=== PATIENT | female | born 1935 | race Caucasian/White ===

== ENCOUNTER 2017-05-04 11:59 | Inpatient (IN) ==
[2017-05-04] MEDS ORDERED: SALINE FLUSH 10ml SYRINGE IVF PRN (12:13)
--- NOTE | 2017-05-04 12:18 | Emergency Department Report ---
Syncope HPI - General Chief Complaint: Upper Respiratory Infection <Reny Gaytan - 05/08/17 21:18> Stated Complaint: pneumonia <Reny Gaytan - 05/08/17 21:18> Time Seen by Provider: 05/04/17 12:04 <Reny Gaytan - 05/08/17 21:18> Source: patient <Nesha Betancur - 05/04/17 12:18> Mode of arrival: EMS <Nesha Betancur 05/04/17 12:18> Limitations: no limitations <Nesha Betancur 05/04/17 12:18> - History of Present Illness HPI narrative: She is brought in today by EMS. Her daughter is the historian. They were at home today and she was with patient in the room. She had sat up on the bed and went stiff as a board. She fell back onto the bed. Her daughter checked her and she did not feel that she was breathing. Did not check a pulse. She was not responsive at all. She lifted her up and she was stiff. Then she took a big deep breath and started breathing again. She called for EMS after this. She was evaluated in ER yesterday. Was diagnosed with pneumonia and sent home with Rx for Levaquin 750mg and Zithromax 500mg x 10 days. She did take both this morning around 0930 and felt nauseated after that but did not vomit. She was having some chest pain earlier today be denies any at this time. <LauraphilippeNesha 05/04/17 12:18> MD complaint: loss of consciousness <Nesha Betancur 05/04/17 12:18> Onset (ago): hour(s) <Nesha Betancur 05/04/17 12:18> Description of event: other (Was stiff as a board per her daughter) <Nesha Betancur 05/04/17 12:18> Prodromal symptoms: none <Nesha Betancur 05/04/17 12:18> Witnessed: yes - by bystander (by her daughter) <Nesha Betancur 05/04/17 12: 18> Context: getting out of bed <Nesha Betancur 05/04/17 12:18> Injuries sustained associated with event: none <Nesha Betancur N - 05/04/17 12:18 > Current symptoms: weakness <LauraphilippeNesha 05/04/17 12:18> Treatments prior to arrival: none <Nesha Betancur 05/04/17 12:18> - Related Data Home Medications Medication Instructions Recorded Confirmed Albuterol Neb (0.083%) [Proventil 2.5 mg AEROSOL Q4H PRN 03/28/17 05/04/17 Neb (0.083%)] Buspirone [Buspar] 5 mg PO BID 03/28/17 05/04/17 Carvedilol 6.25 mg PO BID 03/28/17 05/04/17 Levothyroxine Sodium 50 mcg PO ACB 03/28/17 05/04/17 Omeprazole [Prilosec] 20 mg PO HS 03/28/17 05/04/17 Pravastatin Sodium [Pravachol] 40 mg PO HS 03/28/17 05/04/17 Tiotropium Handihaler [Spiriva] 1 cap INH DAILY 03/28/17 05/04/17 Rivaroxaban [Xarelto] 20 mg PO DAILY 05/03/17 05/04/17 Previous Rx's Medication Instructions Recorded DiltiaZEM CD [Cardizem Cd] 120 mg PO DAILY #30 cap 03/28/17 Guaifenesin LA [Mucinex LA] 600 mg PO BID #30 tab 05/06/17 Levofloxacin [Levaquin] 750 mg PO Q48H #10 tab 05/06/17 Valsartan [Diovan] 320 mg PO DAILY #30 tab 05/06/17 <Reny Gaytan - 05/08/17 21:18> Allergies Allergy/AdvReac Type Severity Reaction Status Date / Time No Known Allergies Allergy Verified 05/04/17 12:07 <Reny Gaytan - 05/08/17 21:18> Review of Systems Constitutional: Reports: weakness. Denies: fever, chills <LauraphilippeAnigladys Etienne - 10/19 12:18> ENT: Denies: ear pain, throat pain, congestion <LauraphilippeNesha N 05/04/17 12:18 > Cardiovascular: Reports: chest pain. Denies: palpitations, dyspnea on exertion , edema <LauraNesha 05/04/17 12:18> Respiratory: Denies: cough, dyspnea, wheezes [facility] 12:18> Gastrointestinal: Reports: nausea. Denies: abdominal pain, vomiting, diarrhea <[facility] 05/04/17 12:18> Integumentary: Denies: rash <[facility] 05/04/17 12:18> Neurological: Reports: weakness. Denies: headache, numbness, paresthesias < [facility] 05/04/17 12:18> [facility] Patient Stated Medical History Cataracts Yes Dysphagia Yes Angina Yes Cardiac Arrhythmia Yes: afib Hypertension Yes Myocardial Infarction No Other Cardiology Yes: mitral valve prolapse Pneumonia Yes Tuberculosis Yes Gastroesophageal Reflux Yes Disease Shingles Yes: back Post Menopausal Yes <Reny Gaytan 05/08/17 21:18> - Social History Smoking status: Former smoker <[facility] 12[facility]18> Physical Exam - Limitations Limitations: no limitations <[facility]/04[facility] 12:18> - General General appearance: alert, in no apparent distress <LauraNesha 05/04/17 12:18> - Normal Exams: Eyes:: Pupils are PERRLA w/ EOMI, No scleral icterus, irritation, or foreign bodies noted <[facility]/04[facility] 12:18> ENMT:: No facial trauma, nasal exudates, pharyngeal erythema, or exudates are noted <[facility] 05/04/17 12:18> Neck:: Full range of motion, without adenopathy, JVD, bruits or thyromegaly < [facility] 05/04/17 12:18> Cardiovascular:: Regular rate and rhythm, without murmur or gallop, Pulses 2+ all extremities, capillary refill, <2 seconds all extremities <LauraNesha 05/04/17 12:18> Abdomen:: Bowel sounds positive, soft, non-tender, non-distended, no hepatosplenomegaly, masses or bruits noted <Nesha Betancur Low[place] - 05/04/17 12:18> Lymphatic:: No lymphadenopathy, or lymphedema noted <Nesha Betancur 05/04/17 12:18> Integumentary:: No rashes, hives, or bruising noted <Nesha Betancur - 05/04/17 12:18> Neurological:: Patient is alert, and oriented <Nesha Betancur [place] 05/04/17 12:18> Psychiatric:: Patient exhibits, appropriate attention, emotion and affect < Nesha Betancur - 05/04/17 12:18> - Respiratory Respiratory exam: Present: crackles (in right lower lobe) <Nesha Betancur 10/19 12:18> Course Course Narrative: Patient's history and exam reviewed along with labs and CXR. Agree with care given. <LukasReny M - 05/08/17 21:18> Vital Signs Temperature 37.1 C 05/04/17 12:05 Pulse Rate 89 05/04/17 12:05 Respiratory Rate 16 05/04/17 12:05 Blood Pressure 132/93 H 05/04/17 12:05 Pulse Oximetry 96 05/04/17 12:05 Temperature 36.3 C 05/06/17 08:00 Pulse Rate 86 05/06/17 08:00 Respiratory Rate 18 05/06/17 09:57 Blood Pressure 161/83 H 05/06/17 08:00 Pulse Oximetry 96 05/06/17 08:00 <LukasReny M - 05/08/17 21:18> Vital Signs Temperature 37.1 C 05/04/17 12:05 Pulse Rate 89 05/04/17 12:05 Respiratory Rate 16 05/04/17 12:05 Blood Pressure 132/93 H 05/04/17 12:05 Pulse Oximetry 96 05/04/17 12:05 Temperature 36.3 C 05/06/17 08:00 Pulse Rate 86 05/06/17 08:00 Respiratory Rate 18 05/06/17 09:57 Blood Pressure 161/83 H 05/06/17 08:00 Pulse Oximetry 96 05/06/17 08:00 <LauraphilippeNesha N - 05/04/17 14:03> Syncope - MDM Narrative Medical decision making narrative: K+-3.0 and Na-129. No other abnormalities noted on labs. Ct of head is negative. Did talk with Dr Henry. Given her period of unresponsiveness today without known reason will admit her OBS with tele at this time. <Nesha Betancur - 05/04/17 14:15> - Differential Diagnosis Likely: vasovagal syncope, subarachnoid hemorrhage, dehydration <Nesha Betancur - 05/04/17 12:18> - Lab Data Attestation: I reviewed the patient's lab results. <Nesha Betancur - 05/04/17 14:03> Result diagrams: 05/06/17 05:16 05/06/17 05:16 <LukasReny M - 05/08/17 21:18> Lab Results 05/04/17 05/04/17 05/04/17 Range/Units 12:34 12:34 12:34 WBC 7.7 (4.5-11.0) T/MM3 RBC 4.10 (4.00-5.20) M/MM3 Hgb 12.8 (12-16) GM/DL Hct 36.5 (36-46) % MCV 89.0 (80-100) UM3 MCH 31.2 (26-34) UUG MCHC 35.1 (31-37) GM/DL RDW Std Deviation 42.0 (36.9-50.2) FL Plt Count 308 (130-400) T/MM3 MPV 8.8 L (9.4-12.4) UM3 Immature Gran % (Auto) 0.1 (0.0-0.5) % Neut % (Auto) 79.4 H (33-66) % Lymph % (Auto) 9.8 L (23-45) % [place] % (Auto) 10.4 H (0-9.0) % Eos % (Auto) 0.0 (0-4) % Baso % (Auto) 0.3 (0-2) % Neut # 6.1 (1.8-7.7) T/MM3 Lymph # 0.8 L (1-4.8) T/MM3 [place] # 0.8 (0-0.8) T/MM3 Eos # 0.0 (0-0.5) T/MM3 Baso # 0.0 (0-0.2) T/MM3 Abs Immat Gran (auto) 0.01 (0.00-0.03) T/MM3 Turbidity < 20 (0-20) Sodium 129 L (134-144) MEQ/L Potassium 3.0 L (3.6-5) MEQ/L Chloride 88 L (98-107) MEQ/L Carbon Dioxide 30 (22-30) MEQ/L Anion Gap 11 (5-15) MEQ/L BUN 16.0 (7-17) MG/DL Creatinine 1.0 (0.7-1.2) MG/DL GFR Calculation 53 BUN/Creatinine Ratio 16 (6-26) RATIO Glucose 121 H (65-110) MG/DL Calculated Osmolality 251 L (261-280) MOSM/KG Calcium 9.4 (8.4-10.2) MG/DL Magnesium 1.4 L (1.6-2.3) MG/DL Total Bilirubin 0.70 (0.20-1.30) MG/DL Icterus Index < 2 (0-7) AST 41 H (14-36) U/L ALT 41 (9-52) U/L Alkaline Phosphatase 88 D (38-126) U/L Troponin I 0.016 (0-0.12) ng/ml Total Protein 6.9 (6.3-8.2) G/DL Albumin 3.8 (3.5-5.0) G/DL Globulin 3.1 (2.4-3.6) G/DL Albumin/Globulin Ratio 1.2 (1.1-2.2) RATIO Specimen Hemolysis < 15 (0-25) Ur Collection Type Urine Color (YELLOW) Urine Clarity Urine pH (5.0-8.0) Ur Specific [place] (1.015-1.025) Urine Protein (NEGATIVE) Urine Glucose (UA) (NEGATIVE) Urine Ketones (NEGATIVE) Urine Occult Blood (NEGATIVE) Urine Nitrate (NEGATIVE) Urine Bilirubin (NEGATIVE) Urine Urobilinogen (NORMAL) EU/DL Ur Leukocyte Esterase (NEGATIVE) Urine RBC (0-3) /HPF Urine WBC (0-5) /HPF Ur Squamous Epith Cells Urine Bacteria (NEGATIVE) Ur Culture Indicated? 05/04/17 Range/Units 13:53 WBC (4.5-11.0) T/MM3 RBC (4.00-5.20) M/MM3 Hgb (12-16) GM/DL Hct (36-46) % MCV (80-100) UM3 MCH (26-34) UUG MCHC (31-37) GM/DL RDW Std Deviation (36.9-50.2) FL Plt Count (130-400) T/MM3 MPV (9.4-12.4) UM3 Immature Gran % (Auto) (0.0-0.5) % Neut % (Auto) (33-66) % Lymph % (Auto) (23-45) % [place] % (Auto) (0-9.0) % Eos % (Auto) (0-4) % Baso % (Auto) (0-2) % Neut # (1.8-7.7) T/MM3 Lymph # (1-4.8) T/MM3 [place] # (0-0.8) T/MM3 Eos # (0-0.5) T/MM3 Baso # (0-0.2) T/MM3 Abs Immat Gran (auto) (0.00-0.03) T/MM3 Turbidity (0-20) Sodium (134-144) MEQ/L Potassium (3.6-5) MEQ/L Chloride (98-107) MEQ/L Carbon Dioxide (22-30) MEQ/L Anion Gap (5-15) MEQ/L BUN (7-17) MG/DL Creatinine (0.7-1.2) MG/DL GFR Calculation BUN/Creatinine Ratio (6-26) RATIO Glucose (65-110) MG/DL Calculated Osmolality (261-280) MOSM/KG Calcium (8.4-10.2) MG/DL Magnesium (1.6-2.3) MG/DL Total Bilirubin (0.20-1.30) MG/DL Icterus Index (0-7) AST (14-36) U/L ALT (9-52) U/L Alkaline Phosphatase (38-126) U/L Troponin I (0-0.12) ng/ml Total Protein (6.3-8.2) G/DL Albumin (3.5-5.0) G/DL Globulin (2.4-3.6) G/DL Albumin/Globulin Ratio (1.1-2.2) RATIO Specimen Hemolysis (0-25) Ur Collection Type Urine, clean catch Urine Color Yellow (YELLOW) Urine Clarity Clear Urine pH 6.0 (5.0-8.0) Ur Specific [place] 1.020 (1.015-1.025) Urine Protein Negative (NEGATIVE) Urine Glucose (UA) Negative (NEGATIVE) Urine Ketones Negative (NEGATIVE) Urine Occult Blood 2+ A (NEGATIVE) Urine Nitrate Negative (NEGATIVE) Urine Bilirubin Negative (NEGATIVE) Urine Urobilinogen 0.2 (NORMAL) EU/DL Ur Leukocyte Esterase Negative (NEGATIVE) Urine RBC 5-10 H (0-3) /HPF Urine WBC 0-1 (0-5) /HPF Ur Squamous Epith Cells 0-5 Urine Bacteria None seen (NEGATIVE) Ur Culture Indicated? Cult not indicated <LukasReny M - 05/08/17 21:18> Lab Results 05/04/17 05/04/17 05/04/17 Range/Units 12:34 12:34 12:34 WBC 7.7 (4.5-11.0) T/MM3 RBC 4.10 (4.00-5.20) M/MM3 Hgb 12.8 (12-16) GM/DL Hct 36.5 (36-46) % MCV 89.0 (80-100) UM3 MCH 31.2 (26-34) UUG MCHC 35.1 (31-37) GM/DL RDW Std Deviation 42.0 (36.9-50.2) FL Plt Count 308 (130-400) T/MM3 MPV 8.8 L (9.4-12.4) UM3 Immature Gran % (Auto) 0.1 (0.0-0.5) % Neut % (Auto) 79.4 H (33-66) % Lymph % (Auto) 9.8 L (23-45) % [place] % (Auto) 10.4 H (0-9.0) % Eos % (Auto) 0.0 (0-4) % Baso % (Auto) 0.3 (0-2) % Neut # 6.1 (1.8-7.7) T/MM3 Lymph # 0.8 L (1-4.8) T/MM3 [place] # 0.8 (0-0.8) T/MM3 Eos # 0.0 (0-0.5) T/MM3 Baso # 0.0 (0-0.2) T/MM3 Abs Immat Gran (auto) 0.01 (0.00-0.03) T/MM3 Turbidity < 20 (0-20) Sodium 129 L (134-144) MEQ/L Potassium 3.0 L (3.6-5) MEQ/L Chloride 88 L (98-107) MEQ/L Carbon Dioxide 30 (22-30) MEQ/L Anion Gap 11 (5-15) MEQ/L BUN 16.0 (7-17) MG/DL Creatinine 1.0 (0.7-1.2) MG/DL GFR Calculation 53 BUN/Creatinine Ratio 16 (6-26) RATIO Glucose 121 H (65-110) MG/DL Calculated Osmolality 251 L (261-280) MOSM/KG Calcium 9.4 (8.4-10.2) MG/DL Magnesium 1.4 L (1.6-2.3) MG/DL Total Bilirubin 0.70 (0.20-1.30) MG/DL Icterus Index < 2 (0-7) AST 41 H (14-36) U/L ALT 41 (9-52) U/L Alkaline Phosphatase 88 D (38-126) U/L Troponin I 0.016 (0-0.12) ng/ml Total Protein 6.9 (6.3-8.2) G/DL Albumin 3.8 (3.5-5.0) G/DL Globulin 3.1 (2.4-3.6) G/DL Albumin/Globulin Ratio 1.2 (1.1-2.2) RATIO Specimen Hemolysis < 15 (0-25) Ur Collection Type Urine Color (YELLOW) Urine Clarity Urine pH (5.0-8.0) Ur Specific [place] (1.015-1.025) Urine Protein (NEGATIVE) Urine Glucose (UA) (NEGATIVE) Urine Ketones (NEGATIVE) Urine Occult Blood (NEGATIVE) Urine Nitrate (NEGATIVE) Urine Bilirubin (NEGATIVE) Urine Urobilinogen (NORMAL) EU/DL Ur Leukocyte Esterase (NEGATIVE) Urine RBC (0-3) /HPF Urine WBC (0-5) /HPF Ur Squamous Epith Cells Urine Bacteria (NEGATIVE) Ur Culture Indicated? 05/04/17 Range/Units 13:53 WBC (4.5-11.0) T/MM3 RBC (4.00-5.20) M/MM3 Hgb (12-16) GM/DL Hct (36-46) % MCV (80-100) UM3 MCH (26-34) UUG MCHC (31-37) GM/DL RDW Std Deviation (36.9-50.2) FL Plt Count (130-400) T/MM3 MPV (9.4-12.4) UM3 Immature Gran % (Auto) (0.0-0.5) % Neut % (Auto) (33-66) % Lymph % (Auto) (23-45) % [place] % (Auto) (0-9.0) % Eos % (Auto) (0-4) % Baso % (Auto) (0-2) % Neut # (1.8-7.7) T/MM3 Lymph # (1-4.8) T/MM3 [place] # (0-0.8) T/MM3 Eos # (0-0.5) T/MM3 Baso # (0-0.2) T/MM3 Abs Immat Gran (auto) (0.00-0.03) T/MM3 Turbidity (0-20) Sodium (134-144) MEQ/L Potassium (3.6-5) MEQ/L Chloride (98-107) MEQ/L Carbon Dioxide (22-30) MEQ/L Anion Gap (5-15) MEQ/L BUN (7-17) MG/DL Creatinine (0.7-1.2) MG/DL GFR Calculation BUN/Creatinine Ratio (6-26) RATIO Glucose (65-110) MG/DL Calculated Osmolality (261-280) MOSM/KG Calcium (8.4-10.2) MG/DL Magnesium (1.6-2.3) MG/DL Total Bilirubin (0.20-1.30) MG/DL Icterus Index (0-7) AST (14-36) U/L ALT (9-52) U/L Alkaline Phosphatase (38-126) U/L Troponin I (0-0.12) ng/ml Total Protein (6.3-8.2) G/DL Albumin (3.5-5.0) G/DL Globulin (2.4-3.6) G/DL Albumin/Globulin Ratio (1.1-2.2) RATIO Specimen Hemolysis (0-25) Ur Collection Type Urine, clean catch Urine Color Yellow (YELLOW) Urine Clarity Clear Urine pH 6.0 (5.0-8.0) Ur Specific [place] 1.020 (1.015-1.025) Urine Protein Negative (NEGATIVE) Urine Glucose (UA) Negative (NEGATIVE) Urine Ketones Negative (NEGATIVE) Urine Occult Blood 2+ A (NEGATIVE) Urine Nitrate Negative (NEGATIVE) Urine Bilirubin Negative (NEGATIVE) Urine Urobilinogen 0.2 (NORMAL) EU/DL Ur Leukocyte Esterase Negative (NEGATIVE) Urine RBC 5-10 H (0-3) /HPF Urine WBC 0-1 (0-5) /HPF Ur Squamous Epith Cells 0-5 Urine Bacteria None seen (NEGATIVE) Ur Culture Indicated? Cult not indicated <Nesha Betancur 05/04/17 14:03> - Radiology Data Attestation: I reviewed the patient's radiology results. <Nesha Betancur 10/19 14:03> CT head: Negative for intracranial hemorrhage <Nesha Betancur 05/04/17 14:03> Disposition Clinical Impression: Pneumonia Qualifiers: Pneumonia type: due to unspecified organism Laterality: right Lung location: lower lobe of lung Qualified Code(s): J18.1 - Lobar pneumonia, unspecified organism Syncope Qualifiers: Syncope type: unspecified Qualified Code(s): R55 - Syncope and collapse <Reny Gaytan 05/08/17 21:18> Disposition: 02 To [facility] <Reny Gaytan 05/08/17 21:18> Condition: Stable <Reny Gaytan 05/08/17 21:18> Instructions: <Reny Gaytan [facility] 05/08/17 21:18> Prescriptions: New Guaifenesin LA [Mucinex LA] 600 mg PO BID #30 tab Valsartan [Diovan] 320 mg PO DAILY #30 tab Continue Carvedilol 6.25 mg PO BID Albuterol Neb (0.083%) [Proventil Neb (0.083%)] 2.5 mg AEROSOL Q4H PRN PRN Reason: Prn Orders Pravastatin Sodium [Pravachol] 40 mg PO HS Omeprazole [Prilosec] 20 mg PO HS Tiotropium Handihaler [Spiriva] 1 cap INH DAILY Buspirone [Buspar] 5 mg PO BID Rivaroxaban [Xarelto] 20 mg PO DAILY Levothyroxine Sodium 50 mcg PO ACB DiltiaZEM CD [Cardizem Cd] 120 mg PO DAILY #30 cap Changed Levofloxacin [Levaquin] 750 mg PO Q48H #10 tab Discontinued Valsartan/Hydrochlorothiazide [Valsartan-Hctz 320-25 mg Tab] 1 tab PO DAILY Guaifenesin [Mucinex] 200 mg PO BID PRN #30 tab PRN Reason: Cough Azithromycin [Zithromax] 500 mg PO DAILY #10 tab <Reny Gaytan - 21:18> Referrals: Dar Cobb II, MD [Primary Care Provider] - <Reny Gaytan - 05/08/17 21:18> Forms: <Reny Gaytan - 05/08/17 21:18> Time of Disposition: 14:01 <Nesha Betancur - 05/04/17 14:03> - Seen By: midlevel <Nesha Betancur - 05/04/17 14:03>
[2017-05-04] MEDS: NS 1,000 ML IV SCH ×2 (13:24→20:00)
[2017-05-04 14:30] VITALS: BMI 18.4
[2017-05-04] MEDS ORDERED: METOCLOPRAMIDE 10mg/2ml INJECTION IVP PRN (15:41)
[2017-05-04] MEDS ORDERED: CALCIUM CARBONATE Chewable 500mg TABLET PO PRN (15:41)
[2017-05-04] MEDS ORDERED: SENNOSIDES 8.6 MG TABLET PO PRN (15:41)
[2017-05-04] MEDS ORDERED: ACETAMINOPHEN 325 MG TABLET PO PRN (15:41)
[2017-05-04] MEDS ORDERED: ALBUTEROL 2.5mg/3ml (0.083%) NEB AEROSOL PRN (15:54)
[2017-05-04] MEDS ORDERED: MENTHOL COUGH DROPS (RICOLA) MM PRN (16:08)
--- NOTE | 2017-05-04 16:18 | History & Physical Report ---
History of Present Illness Date: 05/04/17 Chief complaint: syncope HPI: Mrs. Delvalle is a 81-year-old female who returned from brief trip to [place] 2 days prior to admission. She's had a minor cough over the past week with increasing severity of cough and feeling as though there is sputum in the back of her throat which is thick and cannot be coughed up for several days. She describes the cough as "croupy" and without associated fever or chills. She's had some nausea. She was seen at [facility] yesterday for symptoms or she was noted to have a heart rate of 130 and subsequently referred to the emergency room. On reassessment the patient's heart rate was 112 and temperature 99.2. Blood pressure was elevated at 190/101. Chest x-ray was read as possible right lower lobe infiltrate and she was started on Levaquin and azithromycin for 10 days with initial doses given in the emergency room. Low- dose Mucinex was prescribed for secretions. EKG demonstrated atrial fibrillation with rate of 104. Patient subsequently returned home, slept well and ate a small breakfast this morning. Further after she developed nausea with dry heaves. She was able to take morning medications including both antibiotics prior to onset of GI symptoms. She describes having minor chest pain but no palpitations. Her daughter describes significant retching at which point the patient's eyes rolled back the patient became stiff and fell back in her bed and did not appear to breathe. Unclear how long this lasted but as the patient' s daughter was repositioning her patient took a large gasping breath and then started coming around over about a 5 minute time period. The patient was slightly confused when EMS arrived on the scene and initial blood pressure was 98/53. Multiple electrolyte abnormalities were identified in the emergency room , EKG again demonstrates atrial fibrillation with improvement in rate control. CT of the head was without acute pathology although extensive maxillary sinusitis and moderate ethmoid sinusitis was identified. Mrs. Delvalle reports that she has had discolored nasal secretions and has been blowing her nose significantly over the past week but is not aware of postnasal drainage. The patient describes generalized weakness and difficulty swallowing in addition to above. Patient is admitted for further assessment of syncope. Review of Systems Comprehensive ROS: completed and no additional positive findings except those as stated Review of systems: 35 pound weight loss in 2-3 years with associated reports that nothing tastes good and that she feels like food stick in the upper esophagus; chronic wiggly lines in her vision, cramps in her hands, major stress/anxiety-per daughter. Patient denies sinus headaches. Remainder of comprehensive ROS per history of present illness. [facility] Patient Stated Medical History Chronic atrial fibrillation-Dr. 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 Medications Home Medications Medication Instructions Recorded Confirmed Type Albuterol Neb (0.083%) [Proventil 2.5 mg AEROSOL Q4H PRN 03/28/17 05/04/17 History Neb (0.083%)] Buspirone [Buspar] 5 mg PO BID 03/28/17 05/04/17 History Carvedilol 6.25 mg PO BID 03/28/17 05/04/17 History Levothyroxine Sodium 50 mcg PO ACB 03/28/17 05/04/17 History Omeprazole [Prilosec] 20 mg PO HS 03/28/17 05/04/17 History Pravastatin Sodium [Pravachol] 40 mg PO HS 03/28/17 05/04/17 History Tiotropium Handihaler [Spiriva] 1 cap INH DAILY 03/28/17 05/04/17 History Valsartan/Hydrochlorothiazide 1 tab PO DAILY 03/28/17 05/04/17 History [Valsartan-Hctz 320-25 mg Tab] Rivaroxaban [Xarelto] 20 mg PO DAILY 05/03/17 05/04/17 History Allergies Allergy/AdvReac Type Severity Reaction Status Date / Time No Known Allergies Allergy Verified 05/04/17 12:07 Exam Vital Signs: Temperature 98.1 F 05/04/17 14:28 Pulse Rate 86 05/04/17 14:28 Respiratory Rate 16 05/04/17 14:28 Blood Pressure 160/80 H 05/04/17 14:28 Pulse Oximetry 96 05/04/17 14:28 EXAM: General-NAD, alert, patchy alopecia HEENT-PERRL, EOMI without nystagmus, conjugate gaze, conjunctiva clear, sclera anicteric facial structures symmetric, oropharynx clear, neck supple and without adenopathy Lungs-nonlabored, good airflow, breath sounds clear bilaterally Cardiac-irregularly irregular, S1-S2 Abd-soft, nontender, bowel sounds present Ext-without edema Skin-without rash or evidence of wounds Neuro-cranial nerves 3-12 intact, sensation intact to light touch 4 extremities , motor tone normal, mild generalized weakness Psych-anxious Height/Weight/BMI: Height 1.55 m Weight 44.3 kg Body Mass Index 18.4 Results - Labs CBC & Chem 7: 05/04/17 12:34 05/04/17 12:34 Labs: ER visit overnight: White count 10.1 with unremarkable differential, lactic acid 1.1, procalcitonin 0.08 Currently-liver enzymes unremarkable except AST is 41 Troponin 0.016 - ECG Data Tracing #1 I reviewed this ECG and interpreted as documented below: (A. fib, adequate rate control, no acute changes) - Imaging and Cardiology CT scan - head Status: image reviewed by me (Acute intracranial pathology, opacification of maxillary sinuses and minor ethmoid disease) Chest x-ray Status: image reviewed by me (chest x-ray obtained last night in the emergency room demonstrates COPD, nodule and scarring unchanged from film in early March; no clear infiltrate by my review.) Assessment and Plan (1) Syncope Current visit: Yes Status: Acute DVT Prophylaxis: SCD's, Xarelto Resuscitation Status: Full Code Assessment and Plan: Assessment: Syncope Atrial fibrillation Hyponatremia-POA Hypokalemia-POA Sinusitis, maxillary/ethmoid COPD Hypertension Weight loss Dysphasia Plan: Mrs. Delvalle was admitted with combination of syncope, generalized weakness in conjunction with hyponatremia and hypokalemia, and subacute weight loss. I am concerned that an arrhythmia preceded her syncopal event based on her daughter's description and reports that the patient was apneic and possibly pulseless for brief period of time. Combination of azithromycin and Levaquin are associated with QT prolongation and potential for arrhythmias. Azithromycin will be discontinued. Levaquin will be continued for sinusitis and sputum culture ordered. Respiratory viral panel will be obtained. Mucinex will be continued at 600 mg twice a day to help with cough control and cough drops added. Potassium is being replaced IV and orally, saline will be continued for hypokalemia; HCTZ is being discontinued due to electrolyte abnormalities and magnesium checked as patient has been hypomagnesemic in the past when evaluated in the emergency room. Swallow evaluation requested, may eventually require direct visualization of esophagus. Adequate rate control at present, but pressure elevated on arrival-continue to monitor. Following stabilization of present problems patient will return to the care of Dr. Cobb. Old records reviewed, daughter provide supplemental history; current/past chest x-ray and head CT in addition to EKG is reviewed by myself, laboratory data reviewed. Sepsis Assessment - Evaluation Sepsis screening result: No Definite Risk Hospital Course Summary Disclaimer: The visit summary below is not to be considered part of the above Progress Note. Hospital Course: 05/04/17 16:38 Mrs. Delvalle was admitted with combination of syncope, generalized weakness in conjunction with hyponatremia and hypokalemia, and subacute weight loss. I am concerned that an arrhythmia preceded her syncopal event based on her daughter's description and reports that the patient was apneic and possibly pulseless for brief period of time. Combination of azithromycin and Levaquin are associated with QT prolongation and potential for arrhythmias. Azithromycin will be discontinued. Levaquin will be continued for sinusitis and sputum culture ordered. Respiratory viral panel will be obtained. Mucinex will be continued at 600 mg twice a day to help with cough control and cough drops added. Potassium is being replaced IV and orally, saline will be continued for hypokalemia; HCTZ is being discontinued due to electrolyte abnormalities and magnesium checked as patient has been hypomagnesemic in the past when evaluated in the emergency room. Swallow evaluation requested, may eventually require direct visualization of esophagus. Adequate rate control at present, but pressure elevated on arrival-continue to monitor.
[2017-05-04] MEDS: NS with KCL 20 mEq 1,000 ML IV SCH (17:20)
[2017-05-04] MEDS: MAGNESIUM SULFATE 1gm PREMIX 1 GM/100 ML BAG IV SCH ×2 (17:27→19:51)
[2017-05-04] MEDS: GUAIFENESIN LA 600 MG TABLET PO SCH ×2 (17:27→22:30)
[2017-05-04] MEDS ORDERED: CARVEDILOL 6.25 MG TABLET PO SCH (21:00)
[2017-05-04] MEDS: PRAVASTATIN 40 MG TABLET PO SCH (22:28)
[2017-05-04] MEDS: BUSPIRONE 5 MG TABLET PO SCH (22:29)
[2017-05-04] MEDS: OMEPRAZOLE 20 MG CAPSULE PO SCH (22:31)
[2017-05-05] MEDS: LEVOTHYROXINE 50 MCG TABLET PO SCH (06:15)
[2017-05-05] MEDS ORDERED: LEVOFLOXACIN 750 MG TABLET PO SCH (07:30)
[2017-05-05] MEDS: NS with KCL 20 mEq 1,000 ML IV SCH ×3 (07:47→19:01)
[2017-05-05] MEDS: CARVEDILOL 6.25 MG TABLET PO SCH ×2 (07:48→17:52)
[2017-05-05 07:57] VITALS: RESP 18
[2017-05-05] MEDS: TIOTROPIUM 18mcg/cap HANDIHALER ORAL INH SCH (09:38)
--- NOTE | 2017-05-05 09:52 | CT Scan Report ---
Indication: unresponsive episode PROCEDURE: CT head/brain wo con: Encounter: Initial Comparison: None Technique: Axial CT images through the head were performed without contrast. Iterative Reconstruction dose reducing technique was utilized. FINDINGS: Mild atrophy. The ventricles are of normal size, shape, and contour for the patient's age. There are scattered areas of low attenuation in the white matter which most likely represent changes from chronic microvascular ischemia. The brainstem, cerebellum, and cerebral hemispheres otherwise have a normal morphology and CT attenuation. There is no evidence of midline displacement. No hemorrhage, signs of acute territorial stroke, mass effect, mass lesions, or edema is evident. The visualized portions of the skull base, midface, and calvarium demonstrate no abnormality. Opacification of the maxillary sinuses. IMPRESSION: No acute intracranial abnormality or hemorrhage. There is a preliminary report by [facility]. .
[2017-05-05] MEDS: Valsartan 160 MG TABLET PO SCH (10:09)
[2017-05-05] MEDS: BUSPIRONE 5 MG TABLET PO SCH (10:09)
[2017-05-05] MEDS: GUAIFENESIN LA 600 MG TABLET PO SCH ×2 (10:10→20:53)
--- NOTE | 2017-05-05 14:04 | Progress Note ---
<Giovana Chester - Last Filed: 05/05/17 14:01> Subjective: Shala is up in room- is very anxious. Is quite upset that her glasses are not very effective for her. States this is a chronic problem, and that she has needed to see her eye doctor for some time. She reports that she is breathing fairly well. Denies productive cough. No c/o pain. Chart is reviewed for collateral information. Objective Vital signs: Temperature 97.8 F 05/05/17 07:54 Pulse Rate 79 05/05/17 11:08 Respiratory Rate 18 05/05/17 07:54 Blood Pressure 159/80 H 05/05/17 09:18 Pulse Oximetry 96 05/05/17 07:54 Height/Weight/BMI: Weight 43.8 kg - Constitutional Present: moderate distress, thin, cooperative Comments: Anxious - Routine HEENT Exam Head: Present: normocephalic, atraumatic Eye: Present: EOMI, PERRL, normal accommodation ENT: Present: mucous membranes moist - Routine Respiratory Exam Present: dyspnea, decreased breath sounds, diminished air movement (Diminished air flow throughout. No wheezes. No acute SOA at rest. ). Absent: rales, rhonchi, wheezes, crackles - Routine Cardiovascular Exam Present: S1, S2, irregular rhythm - Routine Abdominal Exam Present: soft, normoactive bowel sounds, non distended, non tender - Routine Extremities Exam Present: no edema - Routine Musculoskeletal Exam Musculoskeletal: Present: no clubbing or cyanosis, normal strength, no tenderness - Routine Skin Exam Present: intact, dry - Routine Neurological Exam Present: alert, oriented X3, moving all extremities - Routine Psychiatric Exam Present: cooperative, anxious. Absent: good insight Results - Labs CBC & Chem 7: 05/04/17 12:34 05/05/17 04:47 Microbiology Results: Microbiology 05/05/17 12:14 Sputum, Expectorated Gram Stain - Final 05/05/17 12:14 Sputum, Expectorated Sputum Culture - Preliminary Culture Initiated - Results Pending Assessment and Plan (1) Syncope Current visit: Yes Status: Acute DVT Prophylaxis: Xarelto GI Prophylaxis: other (ppi) Resuscitation Status: Full Code Assessment and Plan: Assessment: Syncope Atrial fibrillation Hyponatremia-POA Hypokalemia-POA Sinusitis, maxillary/ethmoid COPD. Rhinovirus + Hypertension Weight loss Dysphasia Anxiety Plan: 05/05/17 Shala is very anxious today. Reports anxiety is shaw issue. Has been on low-dose Buspar for over a year. Will increase to 5mg PO TID. Add low dose Xanax for breakthrough anxiety. Pt. reports that she has been on that in the past. Avoid adding SSRI for now given hyponatremia. Na remains low- continue IVF for replacement. Plan to permanently stop the HCTZ due to electrolyte deficiencies and advanced age. She reported near syncope, no further incidence. will decrease Levaquin to 500mg daily given advanced age. Repeat CXR. May be able to DC given rhinovirus +. Continue nebulizers and inhalers. Concern for aspiration- ST eval pending. HR is stable. Will repeat labs in AM. - Time spent with patient 25 - 35 minutes Sepsis Assessment - Evaluation Sepsis screening result: No Definite Risk Hospital Course Summary Disclaimer: The visit summary below is not to be considered part of the above Progress Note. Hospital Course: 05/04/17 16:38 Mrs. Delvalle was admitted with combination of syncope, generalized weakness in conjunction with hyponatremia and hypokalemia, and subacute weight loss. I am concerned that an arrhythmia preceded her syncopal event based on her daughter's description and reports that the patient was apneic and possibly pulseless for brief period of time. Combination of azithromycin and Levaquin are associated with QT prolongation and potential for arrhythmias. Azithromycin will be discontinued. Levaquin will be continued for sinusitis and sputum culture ordered. Respiratory viral panel will be obtained. Mucinex will be continued at 600 mg twice a day to help with cough control and cough drops added. Potassium is being replaced IV and orally, saline will be continued for hypokalemia; HCTZ is being discontinued due to electrolyte abnormalities and magnesium checked as patient has been hypomagnesemic in the past when evaluated in the emergency room. Swallow evaluation requested, may eventually require direct visualization of esophagus. Adequate rate control at present, but pressure elevated on arrival-continue to monitor. 05/05/17 14:13 Shala is very anxious today. Reports anxiety is shaw issue. Has been on low-dose Buspar for over a year. Will increase to 5mg PO TID. Add low dose Xanax for breakthrough anxiety. Pt. reports that she has been on that in the past. Avoid adding SSRI for now given hyponatremia. Na remains low- continue IVF for replacement. Plan to permanently stop the HCTZ due to electrolyte deficiencies and advanced age. She reported near syncope, no further incidence. will decrease Levaquin to 500mg daily given advanced age. Repeat CXR. May be able to DC given rhinovirus +. Continue nebulizers and inhalers. Concern for aspiration- ST eval pending. HR is stable. Will repeat labs in AM. <Earnestine Rodriguez - Last Filed: 05/05/17 16:36> Objective Vital signs: Temperature 98.3 F 05/05/17 15:44 Pulse Rate 78 05/05/17 15:44 Respiratory Rate 18 05/05/17 15:44 Blood Pressure 150/84 H 05/05/17 15:44 Pulse Oximetry 98 05/05/17 15:44 Height/Weight/BMI: Weight 43.8 kg Results - Labs CBC & Chem 7: 05/04/17 12:34 05/05/17 04:47 Microbiology Results: Microbiology 05/05/17 12:14 Sputum, Expectorated Gram Stain - Final 05/05/17 12:14 Sputum, Expectorated Sputum Culture - Preliminary Culture Initiated - Results Pending Assessment and Plan (1) Syncope Current visit: Yes Status: Acute Assessment and Plan: I have independently evaluated and examined this patient. I reviewed the chart, the patient's history, and the JEWELRY REPAIRER/PA's documented findings as above. We discussed and formulated the assessment and plan as above with additions as below: Mrs. Delvalle reports cough is slightly better today but complains of increased anxiety. She is not short of breath today. She continues to have nasal drainage and sense of thick secretions in her upper airway that she can't fully clear. Telemetry reviewed-atrial fibrillation/flutter with occasional bradycardia but no high grade ectopy. On exam the patient is anxious and coughs frequently. Respirations are nonlabored, breath sounds somewhat diminished throughout but no wheezing is present. Cardiac rhythm is slightly irregular with S1 and S2; abdomen benign. Electrolytes improved other than persistent hyponatremia. Urine sodium 102, urine creatinine 68. Urine osmolality pending. Continue low-volume saline replacement; I have strongly recommended to patient that she remain off diuretics. Blood pressure modestly elevated-heart rate will preclude higher doses of diltiazem/carvedilol (and patient describes hypotension on 12.5 mg carvedilol in the past). Suspect anxiety playing into increased blood pressure today but appears that blood pressure has been quite labile prior to current admission based on ER visits. BuSpar changed to 10 mg twice a day for simplicity. PT/OT evaluations ordered due to ongoing weakness. EKG in a.m. to reassess QT/QTc intervals. Continue Levaquin for sinusitis. Chest x-ray 05/03 has been read by radiology-no infiltrate. Hospital Course Summary Disclaimer: The visit summary below is not to be considered part of the above Progress Note.
[2017-05-05] MEDS ORDERED: BUSPIRONE 5 MG TABLET PO SCH ×2 (15:00→21:00)
[2017-05-05] MEDS ORDERED: RIVAROXABAN 20 MG TABLET PO SCH (17:30)
[2017-05-05] MEDS: OMEPRAZOLE 20 MG CAPSULE PO SCH (20:53)
[2017-05-05] MEDS: PRAVASTATIN 40 MG TABLET PO SCH (20:53)
[2017-05-05] MEDS: ALPRAZolam 0.5 MG TABLET PO PRN (23:56)
[2017-05-06] MEDS: NS with KCL 20 mEq 1,000 ML IV SCH (00:24)
[2017-05-06] MEDS: LEVOTHYROXINE 50 MCG TABLET PO SCH (05:44)
[2017-05-06] MEDS ORDERED: LEVOFLOXACIN 500 MG TABLET PO SCH (06:30)
[2017-05-06] MEDS: Valsartan 160 MG TABLET PO SCH (08:17)
[2017-05-06] MEDS: CARVEDILOL 6.25 MG TABLET PO SCH (08:18)
[2017-05-06] MEDS: GUAIFENESIN LA 600 MG TABLET PO SCH (08:18)
[2017-05-06] MEDS ORDERED: BUSPIRONE 10 MG TABLET PO SCH (09:00)
[2017-05-06] MEDS: TIOTROPIUM 18mcg/cap HANDIHALER ORAL INH SCH (09:57)
[2017-05-06 10:50] VITALS: BP 161/83; PULSE 86; TEMP 97.4; O2SAT 96
--- NOTE | 2017-05-06 11:50 | Progress Note ---
Progress Note: Subjective: Mrs. Delvalle reports that she feels great. She continues to cough that is now clearing some secretions and aware of postnasal drainage. She denied lightheadedness or dizziness. She is ambulating without difficulty and denied fevers or chills Objective: VS-97.4, 161/83, 86, 96% on room air General-NAD, alert, talkative HEENT-conjunctiva clear Lungs-respirations nonlabored however inspiration again triggers repetitive coughing, no wheezing present, breath sounds are slightly coarse posteriorly Cardiac-cardiac rhythm is slightly irregular, S1-S2 Abd-soft, nontender Ext-without edema - Data: White count 9.5, hemoglobin 11.9, differential unremarkable, sodium 133 with remainder of electrolytes unremarkable. Sputum culture with gram-positive cocci in pairs and white cells reported- culture pending. EKG reviewed-atrial fibrillation, QT interval 364, QTC 413-down from admission values of 401/430. Overnight telemetry with atrial fibrillation with controlled rate and no arrhythmias. Assessment: Syncope Atrial fibrillation Hyponatremia-POA Hypokalemia-POA Sinusitis, maxillary/ethmoid COPD. Rhinovirus + Hypertension Weight loss Dysphasia Anxiety Plan: Stable for discharge, no high-grade arrhythmias detected during hospitalization. Continue treatment for sinusitis. Patient has nebulizer at home. Blood pressures are variable; hydrochlorothiazide discontinued due to multiple electrolyte abnormalities. 2 follow-up with Dr. Cobb in approximately 1 week for reassessment of blood pressure and to determine if carvedilol will require increased dosing. Speech therapy evaluation recommended soft diet, upright for meals, and crushing medications.
--- NOTE | 2017-05-06 11:59 | Discharge Instructions ---
Discharge Plan - Med Rec/Dispo Referrals/Follow Up: Dar Cobb II, MD [Primary Care Provider] - 1 Week Prescriptions: New Guaifenesin LA [Mucinex LA] 600 mg PO BID #30 tab Valsartan [Diovan] 320 mg PO DAILY #30 tab Continue Carvedilol 6.25 mg PO BID Albuterol Neb (0.083%) [Proventil Neb (0.083%)] 2.5 mg AEROSOL Q4H PRN PRN Reason: Prn Orders Pravastatin Sodium [Pravachol] 40 mg PO HS Omeprazole [Prilosec] 20 mg PO HS Tiotropium Handihaler [Spiriva] 1 cap INH DAILY Buspirone [Buspar] 5 mg PO BID Rivaroxaban [Xarelto] 20 mg PO DAILY Levothyroxine Sodium 50 mcg PO ACB DiltiaZEM CD [Cardizem Cd] 120 mg PO DAILY #30 cap Changed Levofloxacin [Levaquin] 750 mg PO Q48H #10 tab Discontinued Valsartan/Hydrochlorothiazide [Valsartan-Hctz 320-25 mg Tab] 1 tab PO DAILY Guaifenesin [Mucinex] 200 mg PO BID PRN #30 tab PRN Reason: Cough Azithromycin [Zithromax] 500 mg PO DAILY #10 tab Discharge Instructions/Outpatient Orders: Final Provider Discharge Instructions Location: Determined By Patient - Disposition 01 Discharged Home, Self-Care
[2017-05-06] MEDS: ALPRAZolam 0.5 MG TABLET PO PRN (13:52)
--- NOTE | 2017-05-06 17:30 | XRay Report ---
INDICATION: SOA PROCEDURE: CHEST 2-VIEWS UPRIGHT (PA & LAT) Encounter: Initial COMPARISON: May 03, 2017 FINDINGS: Lungs are stable in appearance with chronic changes, scarring and emphysema. No new infiltrates appreciated. Chronic blunting of the costophrenic angles. However there does appear to be trace pleural fluid increased from the prior study. Heart size and mediastinal contours are stable. Impression: No focal pneumonia. Trace pleural effusions. .
--- NOTE | 2017-05-06 17:42 | Discharge Summary ---
Discharge Information Date of admission: 05/04/17 15:41 Anticipated date of discharge: 05/06/17 Attending Physician: Earnestine Rodriguez MD Primary care physician: Dar Cobb II, MD - Laboratory Labs: On admission (05/04/17) white count was 7.7, hemoglobin 12.8; sodium 129, potassium 3.0, magnesium 1.4, creatinine 1.0, and liver enzymes unremarkable. Urine sodium 102, urine creatinine 68.2, urine osmolality-pending at discharge 05/06/17 05:16 05/06/17 05:16 - Microbiology Microbiology 05/05/17 12:14 Sputum, Expectorated Gram Stain -neutrophils seen, few gram- positive cocci in pairs and few gram-positive cocci reported 05/05/17 12:14 Sputum, Expectorated Sputum Culture - Preliminary Respiratory viral panel-positive for rhinovirus - Radiology Radiology: Noncontrast CT head on admission demonstrated mild atrophy with scattered areas of low attenuation in the white matter consistent with chronic microvascular ischemia. There is no acute intracranial pathology however the maxillary sinuses are opacified bilaterally. Chest x-ray on 05/06/17 as compared to film obtained in the ER 05/03/17 demonstrated chronic changes with scarring and COPD but no infiltrates/ pneumonia. There was probable trace pleural effusion. History of Present Illness HPI: Mrs. Delvalle is a 81-year-old female who returned from brief trip to [place] 2 days prior to admission. She's had a minor cough over the past week with increasing severity of cough and feeling as though there is sputum in the back of her throat which is thick and cannot be coughed up for several days. She describes the cough as "croupy" and without associated fever or chills. She's had some nausea. She was seen at [facility] yesterday for symptoms or she was noted to have a heart rate of 130 and subsequently referred to the emergency room. On reassessment the patient's heart rate was 112 and temperature 99.2. Blood pressure was elevated at 190/101. Chest x-ray was read as possible right lower lobe infiltrate and she was started on Levaquin and azithromycin for 10 days with initial doses given in the emergency room. Low- dose Mucinex was prescribed for secretions. EKG demonstrated atrial fibrillation with rate of 104. Patient subsequently returned home, slept well and ate a small breakfast this morning. Further after she developed nausea with dry heaves. She was able to take morning medications including both antibiotics prior to onset of GI symptoms. She describes having minor chest pain but no palpitations. Her daughter describes significant retching at which point the patient's eyes rolled back the patient became stiff and fell back in her bed and did not appear to breathe. Unclear how long this lasted but as the patient' s daughter was repositioning her patient took a large gasping breath and then started coming around over about a 5 minute time period. The patient was slightly confused when EMS arrived on the scene and initial blood pressure was 98/53. Multiple electrolyte abnormalities were identified in the emergency room , EKG again demonstrates atrial fibrillation with improvement in rate control. CT of the head was without acute pathology although extensive maxillary sinusitis and moderate ethmoid sinusitis was identified. Mrs. Delvalle reports that she has had discolored nasal secretions and has been blowing her nose significantly over the past week but is not aware of postnasal drainage. The patient describes generalized weakness and difficulty swallowing in addition to above. Patient is admitted for further assessment of syncope. Hospital Course This is a general summary of the patient's hospital course. For more details refer to the complete medical record. Hospital course: Assessment: Syncope Atrial fibrillation Hyponatremia-POA Hypokalemia-POA Sinusitis, maxillary/ethmoid Rhinovirus + bronchitis COPD Hypertension Weight loss Dysphasia Chronic renal failure, stage III Anxiety Hospital course: Mrs. Delvalle was admitted with combination of syncope, generalized weakness in conjunction with hyponatremia and hypokalemia, and subacute weight loss. She had been started on Levaquin and azithromycin the prior day in the emergency room. Combination is associated with QT prolongation and she had taken 2 doses in a relatively short time interval between doses administered in the emergency room and taking medications on the morning of admission. QT was slightly prolonged on admission and shortened to normal range after discontinuation of azithromycin. Review of chest x-ray from the initial ER visit did not demonstrate any findings that were unchanged from past films and the abnormalities seen and appeared to be chronic. CT head demonstrated opacification of the maxillary sinuses and minor involvement of the ethmoid sinuses. Sinusitis was felt to be the more likely cause of the patient's cough then pneumonia. She additionally described rhinorrhea and was found to be positive for rhinovirus. Mucinex was added to her regimen in conjunction with breathing treatments. She continued to cough throughout the hospital course but described improvement in respiratory symptoms and loosening of secretions progressively. I recommended that she continue Levaquin every other day due to chronic renal failure (creatinine clearance in mid 30s per pharmacy calculation ) for 3 weeks. Cardiac telemetry was monitored throughout the hospitalization patient remained in atrial fibrillation without any high-grade arrhythmias identified. Blood pressure was stable throughout without orthostasis described. Patient tended to have moderately high blood pressures but medications were not further adjusted pending resolution of respiratory symptoms. Multiple electrolyte abnormalities were present on admission including hyponatremia, hypokalemia, and hypomagnesemia. Hydrochlorothiazide was discontinued, potassium and magnesium supplemented; at discharge electrolytes were all improved but will require outpatient follow-up. The patient described difficulty swallowing acutely and chronically. Speech therapy evaluated and identified no specific abnormality other than loss of dentition. They recommended a soft diet and that the patient be upright for all meals. Additionally they recommended crushing medications and taking them in soft foods when possible. Significant anxiety was demonstrated throughout the hospitalization, low-dose Xanax was added as needed and BuSpar was transiently increased but I elected to keep patient on her chronic home dose of BuSpar at discharge to avoid confusion with medications changes. This may need to be reconsidered at office follow-up. Mrs. Delvalle was felt stable for discharge on 05/06/17. Respirations were nonlabored although breath sounds were slightly coarse. She was oxygenating well on room air. The patient is asked to follow-up with Dr. Cobb in approximately 1 week for reassessment of respiratory symptoms and blood pressure. Medications were reviewed with the patient in detail. Time spent with patient: discharge greater than 30 minutes Discharge Plan - Med Rec/Dispo Referrals/Follow Up: aDr Cobb II, MD [Primary Care Provider] - 1 Week [facility] Instructions: Pneumonia (DC) Prescriptions: [place]ifenesin LA [Mucinex LA] 600 mg PO BID #30 tab Valsartan [Diovan] 320 mg PO DAILY #30 tab Continue Carvedilol 6.25 mg PO BID Albuterol Neb (0.083%) [Proventil Neb (0.083%)] 2.5 mg AEROSOL Q4H PRN PRN Reason: Prn Orders Pravastatin Sodium [Pravachol] 40 mg PO HS Omeprazole [Prilosec] 20 mg PO HS Tiotropium Handihaler [Spiriva] 1 cap INH DAILY Buspirone [Buspar] 5 mg PO BID Rivaroxaban [Xarelto] 20 mg PO DAILY Levothyroxine Sodium 50 mcg PO ACB DiltiaZEM CD [Cardizem Cd] 120 mg PO DAILY #30 cap Changed Levofloxacin [Levaquin] 750 mg PO Q48H #10 tab Discontinued Valsartan/Hydrochlorothiazide [Valsartan-Hctz 320-25 mg Tab] 1 tab PO DAILY Guaifenesin [Mucinex] 200 mg PO BID PRN #30 tab PRN Reason: Cough Azithromycin [Zithromax] 500 mg PO DAILY #10 tab Discharge Instructions/Outpatient Orders: Final Provider Discharge Instructions Location: Determined By Patient - Disposition 01 Discharged Home, Self-Care
== END 2017-05-06 14:00 | disposition home health service (06) | DRG 312 ==
LOC: MED 11:59 → ED 11:59 → MED 14:25
PROVIDERS: ADMIT Internal Medicine; ATTEND Internal Medicine